=== PATIENT | male | born 1980 ===

== ENCOUNTER 2025-02-23 16:24 | Emergency (ER) | payer BC ==
[2025-02-23] MEDS: Lidocaine 2% 5 ML SDV INJECT ONE (16:55)
[2025-02-23] MEDS: Diphtheria,Pertussis(Acell),Tetanus Vaccine 0.5 ML Syringe IM ONE (17:13)
== END 2025-02-23 17:15 | disposition home or self-care (01) ==
LOC: LB.ED 16:24
DX: S60.457A Superficial foreign body of left little finger, initial encounter (principal); Z23 Encounter for immunization; W45.8XXA Other foreign body or object entering through skin, initial encounter; Y93.89 Activity, other specified
CPT/HCPCS: 90471; 90715; 99283; J2003